=== PATIENT | male | born 1950 | race Caucasian/White ===

== ENCOUNTER 2024-09-09 12:24 | Emergency (ER) | payer BC, SELFPAY ==
[2024-09-09 12:24] VITALS: BP 152/67; PULSE 102; RESP 15; TEMP 36.8; O2SAT 96; BMI 31.8
--- NOTE | 2024-09-09 12:26 | ECG_ITS ---
APPROVED REPORT Exam: Resting ECG HR:110 bpm ECG Measurements Heart Rate 110 AXES PA 157 P 51 QRSd 90 QRS 44 QT 298 T 62 QTc 363 Conclusion SINUS TACHYCARDIA NONSPECIFIC ST & T-WAVE ABNORMALITY Electronically signed by : LILY CASTANEDA, 09/09/2024 15:27:30
--- NOTE | 2024-09-09 12:39 | XR_ITS ---
PROCEDURE INFORMATION: Exam: XR Chest Exam date and time: 09/09/2024 12:42 PM Age: 73 years old Clinical indication: Pain; Left-sided; Additional info: Chest pain TECHNIQUE: Imaging protocol: Radiologic exam of the chest. Views: 2 views. COMPARISON: No relevant prior studies available. FINDINGS: Lungs: The visualized lungs are clear. Pleural spaces: Unremarkable. No pleural effusion. No pneumothorax. Heart/Mediastinum: Unremarkable. No cardiomegaly. Diaphragm: There is elevation of the left hemidiaphragm. Bones/joints: There is thoracic kyphosis noted. IMPRESSION: 1. Elevated left hemidiaphragm. 2. Otherwise no evidence of acute pulmonary process.
[2024-09-09 12:45] VITALS: PULSE 90; RESP 16; O2SAT 93
[2024-09-09 12:51] LABS: Basophils # 0.1 K/mm3 (0-0.2); Basophils % 0.9 % (0.1-2.0); Eosinophils # 0.6 K/mm3 (0.0-0.4); Eosinophils % 6.1 % (0.1-12.0); Hematocrit 39.6 % (42.0-52.0); Lymphocytes # 2.7 K/mm3 (0.7-4.5); Lymphocytes % 27.2 % (10-50); Mean Corpuscular HGB Conc 35.3 g/dL (31.8-35.4); Mean Corpuscular Hemoglobin 31.8 pg (27.0-31.2); Mean Corpuscular Volume 90.1 fl (80-94); Mean Platelet Volume 7.9 fl (7.4-10.4); Monocytes # 0.7 K/mm3 (0.1-1.0); Monocytes % 6.5 % (1.7-9.3); Neutrophils # 5.9 K/mm3 (1.8-7.8); Neutrophils % 59.3 % (37.0-80.0); Platelet Count 376 K/mm3 (142-424); Red Blood Count 4.39 M/mm3 (4.60-6.20)
[2024-09-09 13:00] VITALS: BP 151/71; PULSE 91; RESP 14
[2024-09-09 13:01] LABS: Alanine Aminotransferase 38 U/L (12-78); Albumin Level 4.5 g/dl (3.5-5.0); Albumin/Globulin Ratio 1.6 (1.1-1.8); Alkaline Phosphatase 60 U/L (38-126); Anion Gap 13.7 mEq/L (5-15); Aspartate Amino Transferase 36 U/L (17-59); Bilirubin,Total 0.8 mg/dl (0.2-1.3); Blood Urea Nitrogen 9 mg/dl (9-20); Calcium 9.5 mg/dl (8.4-10.2); Carbon Dioxide 22 mmol/L (22.0-30.0); Chloride 100 mmol/L (98-107); Creatinine Clearance Estimated 93 mL/min (50-200); Estimated Glomerular Filt Rate 95 ml/min (>60); GFR (African American) 115 ML/MIN (>60); Globulin 2.9 g/dL (1.3-3.2); Glucose 109 mg/dl (74-100); Potassium 3.7 mmoL/L (3.5-5.1); Sodium 132 mmol/L (136-145); Total Protein,Serum 7.4 g/dl (6.3-8.2)
[2024-09-09 13:16] LABS: Troponin I < 0.01 ng/ml (0.00-0.034)
[2024-09-09] MEDS: KETOROLAC 30MG/ML VIAL 15 MG IV (13:26)
[2024-09-09] MEDS: ACETAMINOPHEN 500MG TAB 1000 MG PO (13:27)
[2024-09-09] MEDS: BELLADONNA ALKALOIDS 60 ML ML PO (13:27)
[2024-09-09 13:30] VITALS: BP 144/68; PULSE 91; RESP 17
[2024-09-09 13:56] LABS: HIV (1&2) Antibody Rapid NONREACTIVE (NONREACTIVE)
[2024-09-09 14:08] LABS: Microscopic, Urine URINE MICROSCOPIC (MICROSCOPIC)
--- NOTE | 2024-09-09 14:18 | ED_ITS ---
Discharge Plan Disposition Patient Disposition: Home, Self-Care Condition: Good Prescriptions Prescriptions: New naproxen 500 mg tablet 500 mg PO BID Qty: 20 0RF methocarbamol 500 mg tablet 500 mg PO Q8H PRN (Reason: pain) Qty: 20 0RF No Action amlodipine 10 mg tablet 10 mg PO DAILY furosemide [Lasix] 20 mg tablet 20 mg PO DAILY fluticasone propionate [Allergy Relief (fluticasone)] 50 mcg/actuation spray,suspension 1 spray intranasal DAILY Qty: 16 2RF Rx Instructions: administer into each nostril azithromycin [Zithromax Z-Migue] 250 mg tablet See Rx Instructions PO .COMPLEX Qty: 6 0RF Rx Instructions: For 250 mg dose pack: take 500 mg today (day 1), then 250 mg for 4 days (days 2-5) PO benzonatate 100 mg capsule 100 mg PO BID PRN (Reason: cough) Qty: 20 0RF Referrals Follow up/Referrals: Provider,Referral, MD [Primary Care Provider] - See instructions Activity Restrictions/Add. Instructions Additional Instructions/Restrictions: You were evaluated in the emergency department today. At this time, we feel your pain is likely musculoskeletal. Please supervisor opening and picking your medications at the pharmacy and take them as prescribed for symptoms. You may also take Tylenol every 4-6 hours at home as needed for pain. Follow-up closely with primary care. It is okay for you to return to work today as long as you are feeling okay. Return to the emergency department for new or worsening symptoms. Clinical Impressions Clinical Impression: Chest pain, muscular Stand Alone Forms Stand Alone Forms: Work/School Release Instructions Patient Instructions: DI for Atypical Chest Pain Print Language Print Language: Lao Discharge ED Provider: Rachna Cedillo HPI General Chief Complaint: Chest Pain Stated Complaint: Chest Pain Time Seen by Provider: 09/09/24 12:38 Mode of Arrival: Ambulatory Source of Information: Patient Limitations: No Limitations Description of Symptoms (Recalled from ER Triage Doc. by RN): pt presents to ED with c/o chest pain. pt reports he has had cough ongoing for the past couple of weeks. pt reports left sided pain begining approx 2 hrs ago underneath his left breast. History of Present Illness HPI narrative: This patient is a 73-year-old male who denies significant past medical history presenting to the emergency department for evaluation with concern for left- sided pleuritic chest pain that is worse when he moves, takes a deep breath, or sits in certain positions. He notes that has been coughing for several weeks now and thinks that he has strained a muscle. It has been bothering him for several days but it started getting worse today. No abdominal pain, vomiting, changes bowel movements, or other concerns. Related Data Home Medications ?Medication ?Instructions ?Recorded ?Confirmed amlodipine 10 mg tablet 10 mg PO DAILY 08/28/24 08/28/24 furosemide 20 mg tablet (Lasix) 20 mg PO DAILY 08/28/24 08/28/24 Previous Rx's ?Medication ?Instructions ?Recorded azithromycin 250 mg tablet See Rx Instructions PO .COMPLEX #6 08/28/24 (Zithromax Z-Migue) tabs benzonatate 100 mg capsule 100 mg PO BID PRN cough #20 caps 08/28/24 fluticasone propionate 50 1 spray intranasal DAILY #16 grams 08/28/24 mcg/actuation nasal spray,suspension (Allergy Relief (fluticasone)) methocarbamol 500 mg tablet 500 mg PO Q8H PRN pain #20 tabs 09/09/24 naproxen 500 mg tablet 500 mg PO BID #20 tabs 09/09/24 Allergies Allergy/AdvReac Type Severity Reaction Status Date / Time No Known Allergies Allergy Unverified 08/28/24 09:31 [facility] Disclaimer: The information contained in this section may have been updated after the patient was seen, as this information can be updated by other users. Social History Smoking Status: Former smoker alcohol intake: never current occupational status: employed Travel in the last 8 weeks: Inside the [place] Other Medical History Have you received the Pneumonia Vaccine: No ROS Obtained: Yes All systems reviewed & no additional complaints except as documented Physical Exam General General appearance: alert and in no apparent distress Head Head exam: atraumatic and normocephalic Eye Eye exam: Present normal appearance, PERRL and EOMI ENT ENT exam: Present normal exam, normal oropharynx, mucous membranes moist and normal external ear exam Neck Neck exam: Present normal inspection, full ROM and trachea midline; Absent tenderness Chest Chest inspection: Present normal inspection, symmetric chest wall rise and tenderness (L sided) Respiratory Respiratory exam: Present normal lung sounds bilaterally; Absent respiratory distress, wheezes, stridor or accessory muscle use Cardiovascular Cardiovascular exam: Present regular rate and normal rhythm Abdominal Exam Abdominal exam: Present soft; Absent distention, tenderness or guarding Extremities Exam Extremities exam: Present normal inspection, full ROM and normal capillary refill; Absent tenderness or edema Back Exam Back exam: Present normal inspection and full ROM; Absent tenderness Neurological Exam Neurological exam: Present alert, oriented X3, CN II-XII intact and normal gait; Absent motor sensory deficit Psychiatric Psychiatric exam: Present normal affect and normal mood Skin Skin exam: Present warm and dry HEART Score HEART Score HEART Score assessment performed?: Yes History (anamnesis): Slightly suspicious ECG: Normal Age: >65 years Risk factors: 1-2 risk factors Troponin: </= normal limit HEART Score: 3 Critical Care Critical Care Time Critical Care Time: No Medical Decision Making Marc Inquiry Pt receiving controlled substance: No Vital Signs Vital Signs: 09/09/24 12:24 09/09/24 12:45 09/09/24 13:00 Temperature 98.2 F Temperature Source Oral Pulse Rate 90 91 H Pulse Rate [Left Radial] 102 H Respiratory Rate 15 16 14 Blood Pressure 151/71 H Blood Pressure [Right Arm] 152/67 H Blood Pressure Mean 79 Blood Pressure Mean [Right Arm] 95 02 Sat by Pulse Oximetry 96 93 L Oxygen Delivery Method Room Air Room Air 09/09/24 13:30 09/09/24 15:00 Temperature 98.0 F Temperature Source Pulse Rate 91 H 92 H Pulse Rate [Left Radial] Respiratory Rate 17 13 Blood Pressure 144/68 H 140/64 Blood Pressure [Right Arm] Blood Pressure Mean 86 Blood Pressure Mean [Right Arm] 02 Sat by Pulse Oximetry Oxygen Delivery Method Lab Data Labs: Lab Results 09/09/24 12:26: WBC 10.0, RBC 4.39 L, Hgb 14.0 L, Hct 39.6 L, MCV 90.1, MCH 31.8 H, MCHC 35.3, RDW 13.0, Plt Count 376, MPV 7.9, Neut % (Auto) 59.3, Lymph % (Auto) 27.2, [place] % (Auto) 6.5, Eos % (Auto) 6.1, Baso % (Auto) 0.9, Neut # (Auto) 5.9, Lymph # (Auto) 2.7, [place] # (Auto) 0.7, Eos # (Auto) 0.6 H, Baso # (Auto) 0.1, D-Dimer 0.40, Sodium 132 L, Potassium 3.7, Chloride 100, Carbon Dioxide 22, Anion Gap 13.7, BUN 9, Creatinine 0.80, Estimated Creat Clear 93, Estimated GFR 95, Est GFR ( Amer) 115, Glucose 109 H, Calcium 9.5, Total Bilirubin 0.8, AST 36, ALT 38, Alkaline Phosphatase 60, Troponin I < 0.01, NT-Pro-B Natriuret Pep 39.0, Total Protein 7.4, Albumin 4.5, Globulin 2.9, Albumin/Globulin Ratio 1.6, HIV 1&2 Antibody Rapid Nonreactive 09/09/24 14:03: Urine Color Yellow, Urine Appearance Clear, Urine pH 7.0, Ur Specific [place] 1.020, Urine Protein Negative, Urine Glucose (UA) Negative, Urine Ketones Trace, Urine Blood Negative, Urine Nitrate Negative, Urine Bilirubin Negative, Urine Urobilinogen 0.2, Ur Leukocyte Esterase Negative, Urine RBC None, Urine WBC Occasional, Ur Squamous Epith Cells Occasional, Urine Bacteria None 09/09/24 12:26 09/09/24 12:26 Response Orders (Tests/Meds): ED MEDICATIONS Discontinued Medications Generic Name Dose Route Start Last Admin Trade Name Amara PRN Reason Stop Dose Admin Acetaminophen 1,000 mg 09/09/24 13:11 09/09/24 13:27 Acetaminophen 500mg Tab PO 09/09/24 13:12 1,000 mg ONCE ONE Administration Belladonna Alkaloids 60 ml 09/09/24 13:11 09/09/24 13:27 Belladonna Alkaloids 60 Ml Ml PO 09/09/24 13:12 60 ml ONCE ONE Administration Ketorolac Tromethamine 15 mg 09/09/24 13:11 09/09/24 13:26 Ketorolac 30mg/Ml Vial IV 09/09/24 13:12 15 mg ONCE ONE Administration ORDERS Category Date Time Status CXR 2 view (NOT portable) [XR chest 2V] Stat Exams 09/09/24 12:39 Completed BNP [NT Pro Brain Natriuretic Pep.] Stat Lab 09/09/24 12:26 Completed CBC w/Auto Diff [Complete Blood Count Auto Diff] Stat Lab 09/09/24 12:26 Completed CMP [Comprehensive Metabolic Panel] Stat Lab 09/09/24 12:26 Completed D-Dimer Stat Lab 09/09/24 12:26 Completed HIV (1&2) Antibody Rapid Stat Lab 09/09/24 12:26 Completed Hep C Ab with Reflex to RNA Stat Lab 09/09/24 12:26 Received Trop I [Troponin I] Stat Lab 09/09/24 12:26 Completed UA [Urinalysis and Microscopic] Stat Lab 09/09/24 14:03 Completed ECG Data Tracing #1: Attestation: I reviewed this ECG and interpreted as documented below: ECG Narrative: Sinus tachycardia with a ventricular rate of [address] changes concerning for ischemia. Normal intervals. ECG initial impression date: 09/09/24 ECG initial impression time: 12:32 MDM Narrative Medical Decision Narrative: In summary, this patient is a 73-year-old male presenting to the Emergency Department for evaluation of left-sided pleuritic chest pain is worse with. Differential diagnoses considered include but are not limited to musculoskeletal strain/pain, PE, pleurisy, pneumonia, pneumothorax. Ruling out the most morbid conditions drove assessment. On exam, the patient is sitting upright in bed in no acute distress. His pain is reproducible with palpation. I feel is likely musculoskeletal in nature in the setting of this cough for several weeks, but will obtain cardiac workup including D-dimer and chest x-ray to further assess. Patient was given IV Toradol and oral Tylenol for symptomatic improvement of pain. I independently interpreted x-ray prior to the radiologist read and noted no acute focal consolidation or pneumothorax. Please see their read for final interpretation. Labs were obtained that demonstrated no significant leukocytosis. He does have very mild hyponatremia. Troponin negative, D-dimer negative. On reassessment, patient had good improvement after administration of event as above. He is feeling a lot better. I do continue to feel like his pain is musculoskeletal based on description and reproducibility. Vitals are reassuring on cardiac telemetry. Ultimately, I feel he excluded acute life-threatening pathology as a cause of his symptoms and he is appropriate for discharge home. I did prescribe him muscle relaxer and naproxen to treat pain. He was given strict return precautions and instructions for close outpatient follow-up. He was discharged after all questions were answered.
[2024-09-09 14:44] LABS: Appearance,Urine CLEAR (Clear); Bilirubin,Urine Negative (Negative); Blood, Urine Negative (Negative); Color,Urine YELLOW (Yellow); Glucose,Urine (UA) Negative (Negative); Ketones,Urine TRACE (Negative); Leukocyte Esterase,Urine Negative (Negative); Nitrate,Urine Negative (Negative); Protein,Urine Negative (Negative); Urobilinogen,Urine 0.2 EU/dl (0.2)
[2024-09-09 15:00] VITALS: BP 140/64; PULSE 92; RESP 13; TEMP 36.7
[2024-09-09 15:17] LABS: Squamous Epithelial Cell,Urine Occasional #/hpf (0-5); WBC,Urine Occasional #/hpf (0-3)
[2024-09-10 09:39] LABS: HCV Ab Non Reactive (Non Reactive)
== END 2024-09-09 15:00 | disposition home or self-care (01) ==
PROVIDERS: Emergency Provider Emergency Medicine
DX: R07.89 Other chest pain (principal); R05.9 Cough, unspecified
CPT/HCPCS: 71046; 80053; 81001; 83880; 84484; 85025; 85378; 86803; 87389; 93005; 96374; 99284; J1885